=== PATIENT | male | born 1985 | race Caucasian/White ===

== ENCOUNTER 2021-07-13 18:35 | Emergency (ER) | payer OTHER ==
[2021-07-13] MEDS ORDERED: Ketorolac 60 MG/2 ML SDV IM ONE (19:18)
--- NOTE | 2021-07-13 19:28 | EDM.PDOC ---
ED HPI GENERAL MEDICAL PROBLEM - General Chief Complaint: Laceration Stated Complaint: FACE LACS Time Seen by Provider: 07/13/21 18:54 Source of Information: Reports: Patient History Limitations: Reports: No Limitations - History of Present Illness INITIAL COMMENTS - FREE TEXT/NARRATIVE: 35-year-old male presents the emergency department this evening with complaints of facial trauma. The patient states that around 1730 this evening he was losing a sledgehammer to get somewhat to come loose and swung the hammer upward and missed and hit himself in the head with a sledgehammer. He states that initially he had some tunnel vision however he did not lose consciousness. He states he initially had ringing in his ears but it resolved shortly after. Currently does not complain of any blurred vision, double vision or ringing in his ears. Sustained a laceration just between his eyes and an abrasion on the bridge of his nose. He does not take any blood thinners. States he is normally healthy. Currently is complaining of a headache. Head Pain Score (Numeric/FACES): 3 - Related Data Allergies Allergy/AdvReac Type Severity Reaction Status Date / Time codeine Allergy Severe Seizure Verified 07/13/21 18:53 Home Meds: Home Meds . [No Known Home Meds] 07/13/21 [History] Past Medical History - Past Health History Medical/Surgical History: Denies Medical/Surgical History - Infectious Disease History Infectious Disease History: Reports: None Social & Family History - Tobacco Use Tobacco Use Status *Q: Never Tobacco User - Caffeine Use Caffeine Use: Reports: Coffee - Recreational Drug Use Recreational Drug Use: No ED ROS GENERAL - Review of Systems Review Of Systems: Comprehensive ROS is negative, except as noted in HPI. ED EXAM, SKIN/RASH Exam: See Below Exam Limited By: No Limitations General Appearance: Alert, WD/WN, No Apparent Distress Eye Exam: Bilateral Eye: EOMI, PERRL Ears: Normal External Exam, Hearing Grossly Normal Nose: Nasal Tenderness (Bridge of nose), Nasal Swelling (Bridge of nose), Other (Abrasion to the bridge of the nose) Throat/Mouth: Normal Inspection, Normal Lips, Normal Voice, No Airway Compromise Head: Atraumatic, Normocephalic Neck: Normal Inspection, Supple Respiratory/Chest: No Respiratory Distress, Lungs Clear, Normal Breath Sounds, No Accessory Muscle Use, Chest Non-Tender Cardiovascular: Normal Peripheral Pulses, Regular Rate, Rhythm, No Edema, No Murmur GI/Abdominal: No Distention (Male) Exam: Deferred Rectal (Males) Exam: Deferred Back Exam: Normal Inspection Extremities: Normal Inspection Neurological: Alert, Oriented, CN II-XII Intact, Normal Cognition Psychiatric: Normal Affect, Normal Mood Skin: Warm, Dry, Intact, Normal Color, No Rash Location, Skin: Face (Between the eyebrows and bridge of nose) Characteristics: Other (Gaping laceration) Lymphatic: No Adenopathy ED SKIN PROCEDURES - Laceration/Wound Repair Forehead Appearance: Superficial Anesthetic Type: Local Local Anesthesia - Lidocaine (Xylocaine): 1% Plain Local Anesthetic Volume: 2cc Closed with: Sutures Lac/Wound length In cm: 1.5 Suture Size: 5-0 # of Sutures: 5 Suture Type: Nylon, Interrupted Nose Appearance: Superficial Anesthetic Type: Local Local Anesthesia - Lidocaine (Xylocaine): 1% Plain Local Anesthetic Volume: 1cc Closed with: Sutures Lac/Wound length In cm: 0.5 Suture Size: 5-0 # of Sutures: 1 Suture Type: Nylon, Interrupted Course - Vital Signs Text/Narrative:: As stated above, patient presents with injury after hitting himself in the head with a sledgehammer. Denies losing consciousness. Upon exam, the patient is awake alert and oriented. Full neuro exam is unremarkable. He does have a gaping 1 cm laceration noted just between his eyebrows. He also has an abrasion and some swelling noted to the bridge of his nose. Area is tender. Will obtain a facial x-ray. Laceration will need suturing for repair. Also order for him to receive a shot of IM Toradol for the headache discomfort. Last Recorded V/S: Last Vital Signs Temp 98.0 F 07/13/21 18:56 Pulse 86 07/13/21 18:56 Resp 20 07/13/21 18:56 BP 123/74 07/13/21 18:56 Pulse Ox 95 07/13/21 18:56 - Orders/Labs/Meds Meds: Medications Discontinued Medications Generic Name Dose Route Start Last Admin Trade Name Freq PRN Reason Stop Dose Admin Ketorolac Tromethamine 60 mg 07/13/21 19:18 07/13/21 19:36 Ketorolac 60 Mg/2 Ml Sdv IM 07/13/21 19:19 60 mg ONETIME ONE Administration Lidocaine HCl 10 ml 07/13/21 19:59 07/13/21 20:38 Lidocaine 1% 10 Ml Mdv INJECT 07/13/21 20:00 10 ml ONETIME ONE Administration - Re-Assessments/Exams Free Text/Narrative Re-Assessment/Exam: 07/13/21 20:56 Radiologist impression 4 views of the facial bones: 1. No acute abnormality is appreciated on facial bone exam. If patient remains symptomatic, CT study should then be performed. 07/13/21 20:56 Laceration was prepped and draped in sterile fashion. Departure - Departure Time of Disposition: 20:59 Disposition: Home, Self-Care 01 Condition: Good Clinical Impression: Head injury Qualifiers: Encounter type: initial encounter Qualified Code(s): S09.90XA - Unspecified injury of head, initial encounter Laceration of forehead without complication Qualifiers: Encounter type: initial encounter Qualified Code(s): S01.81XA - Laceration without foreign body of other part of head, initial encounter Laceration of nose without complication Qualifiers: Encounter type: initial encounter Qualified Code(s): S01.21XA - Laceration without foreign body of nose, initial encounter - Discharge Information Instructions: Laceration Care, Adult, [id number], Sutures, [place], or Adhesive Wound Closure, [id number] Referrals: PCP,None [Primary Care Provider] - Forms: ED Department Discharge Additional Instructions: You were seen in the emergency department after a traumatic injury to your head with a sledgehammer. X-rays were completed and there are no broken bones in your face or nose. You did have a laceration between your eyes and on your nasal bridge. Both were repaired with sutures. Keep the dressing on for 24 hours. Once you remove the dressing you should wash the wound twice daily with mild soap such as Dial or Deep baby shampoo, pat the wound dry and then apply a thin film of bacitracin. Sutures can be removed in 5 days time. Watch for any signs and symptoms of infection such as increased warmth, redness, swelling or pus. Sepsis Event Note (ED) - Focused Exam Vital Signs: Vital Signs Temp Pulse Resp BP Pulse Ox 07/13/21 18:56 98.0 F 86 20 123/74 95
[2021-07-13] MEDS ORDERED: Lidocaine 1% 10 ML MDV INJECT ONE (19:59)
--- NOTE | 2021-07-13 20:20 | CR ---
Facial Bones: 4 views of the facial bones were obtained. Comparison: No previous facial bone study is available. Visualized paranasal sinuses are clear. Zygomatic arches are intact. Other bony structures also appear intact. No discrete fracture is appreciated. Impression: 1. No acute abnormality is appreciated on facial bone exam. If patient remains symptomatic, CT study could then be performed. Diagnostic code #1
== END 2021-07-13 21:15 | disposition home or self-care (01) ==
LOC: JD.ED 18:35
DX: S01.21XA Laceration without foreign body of nose, initial encounter (principal); Z88.5 Allergy status to narcotic agent; W22.09XA Striking against other stationary object, initial encounter
CPT/HCPCS: 12011; 70150; 96372; 99283; J1885